=== PATIENT | male | born 1970 | race Native Hawaiian/Other Pacific Islander ===

== ENCOUNTER 2019-08-27 21:08 | Observation (INO) | payer OTHER ==
[~2019-08-27] VITALS: Ht 185.4 cm; Wt 91.4 kg
[2019-08-27 21:08] VITALS: BP 183/90; TEMP 98.36
[2019-08-27 21:41] LABS: PLATELET COUNT 389 K/uL (142-355)
[2019-08-27 22:22] LABS: POTASSIUM 4.2 mmol/L (3.6-5.2); SODIUM 128 mmol/L (136-145)
[2019-08-28 00:24] VITALS: BP 123/72; TEMP 98.3
[2019-08-28 00:44] VITALS: BP 123/72; TEMP 98.3; Ht 185.4 cm; Wt 91.4 kg
--- NOTE | 2019-08-28 03:27 | NUR ---
08/27/19 2320: PT ARRIVED FROM ER BY WHEELCHAIR TO ROOM 1110. PT ALERT,ORIENTATED. PT HAD TRIPLE BYPASS APPROXIMATELY 3 WEEKS AGO. INCISION TO CHEST HEALED. TELEMETRY APPLIED.IV FLUID ALREADY RUNNING.
--- NOTE | 2019-08-28 03:35 | NUR ---
08/28/19 0135: BLOOD SUGAR 431, ER NOTIFIED. ORDER RECEIVED FOR 8 UNITS OF REG INSULIN, HOME DOSE OF LANTUS, AND 2MG OF MAGNESIUM SULFATE IVPB. ORDER WRITTEN AND SENT TO PHARM D.
[2019-08-28 04:00] VITALS: BP 130/63; TEMP 97.7
--- NOTE | 2019-08-28 04:06 | NUR ---
08/28/19 0315: BLOOD SUGAR RECHECKED PER DR'S REQUEST, BLOOD SUGAR 351. 10 UNITS REG INSULIN SQ PER PROTOCOL.
[2019-08-28 05:16] LABS: PARTIAL THROMBOPLASTIN TIME 24.5 SECONDS (24.5-33.6)
[2019-08-28 05:33] LABS: POTASSIUM 3.8 mmol/L (3.6-5.2); SODIUM 133 mmol/L (136-145)
--- NOTE | 2019-08-28 07:18 | NUR ---
Patient was admitted with [facility] and had cardiac bypass surgery 4 weeks ago and has been back to [facility] 2 times and they tell him it is left shoulder paiin muscoskeletal and not cardiac. Plavix, Lisinopril, INsulin R, insulin H, has chronic back pain and is on hydrocodone and smokes less than 1 pack a day. On 1800 calorie diet and labs reveal K 33 depressed, glucose 304 and 462 elevated, na 28 depressed cl 9.3 depressed, Mg 1.6 depressed and lipase depressed at 38. Dx. of CP, Hypoatremia, and DM and is 6'1" at 201.9 lbs and is a 48 YOM. IBW IBW 184+/-10% and is 110% of IBW and BMI at 26.6 overweight and kcal for IBW = x 30= 2520; [id number] grams x 1.0/1.3, and fluids for weight x 30 = 2755 ml per day. Recommend: 1- 2200 Calorie High Fiber Low Fat/Cholesterol
[2019-08-28 08:00] VITALS: BP 151/81; TEMP 97.6
--- NOTE | 2019-08-28 16:25 | NUR ---
PATIENT GIVEN DISCHARGE INSTRUCTIONS WITH PAIN SCRIPT. PATIENT IV DISCONTINUED WITH TIP INTACT. PATIENT EDUCATED TO FOLLOW UP WITH PCP. PATIENT VERBALIZED UNDERSTANDING. PATIENT AMBULATED WITH FAMILY IN NO ACUTE DISTRESS.
== END 2019-08-28 16:25 | disposition home or self-care (01) ==
LOC: ED 21:08 → MED/SURG 22:57
PROVIDERS: Internal Medicine; ADMIT Emergency Medicine
DX: R07.89 Other chest pain (principal); E87.1 Hypo-osmolality and hyponatremia; I10 Essential (primary) hypertension; I25.10 Atherosclerotic heart disease of native coronary artery without angina pectoris; E11.9 Type 2 diabetes mellitus without complications; E83.42 Hypomagnesemia; K21.9 Gastro-esophageal reflux disease without esophagitis; Z72.0 Tobacco use; G89.4 Chronic pain syndrome
CPT/HCPCS: 36415; 80048; 80053; 82550; 83690; 83735; 84484; 85027; 85610; 85730; 93005; 96360; 96375; 99220; 99284; G0378; J1815; J1885; J2270; J2405; J3475

== ENCOUNTER 2021-02-22 18:28 | Outpatient (CLI) | payer OTHER ==
[2021-02-22 19:29] LABS: PLATELET COUNT 295 K/uL (142-355)
[2021-02-22 20:05] LABS: POTASSIUM 5.3 mmol/L (3.6-5.2)
== END 2021-02-22 21:57 | disposition home or self-care (01) ==
LOC: LAB 18:28
PROVIDERS: ATTEND Nurse Practitioner Family
DX: Z00.00 Encounter for general adult medical examination without abnormal findings (principal); E11.9 Type 2 diabetes mellitus without complications; I10 Essential (primary) hypertension; E78.5 Hyperlipidemia, unspecified; Z79.899 Other long term (current) drug therapy; M19.90 Unspecified osteoarthritis, unspecified site; I25.10 Atherosclerotic heart disease of native coronary artery without angina pectoris; E34.9 Endocrine disorder, unspecified; L40.9 Psoriasis, unspecified; R53.83 Other fatigue; R53.81 Other malaise
CPT/HCPCS: 80053; 80061; 82306; 82607; 83036; 84403; 84439; 84443; 84550; 84681; 85027; 86140